=== PATIENT | female | born 1990 | race American Indian/Alaskan Native ===

== ENCOUNTER 2020-06-11 23:22 | Emergency (ER) | payer BC ==
[2020-06-11 23:56] VITALS: BP 139/97
== END 2020-06-12 04:25 | disposition left against medical advice (07) ==
LOC: ED 23:22
DX: K08.89 Other specified disorders of teeth and supporting structures (principal); Z53.21 Procedure and treatment not carried out due to patient leaving prior to being seen by health care provider